=== PATIENT | female | born 1985 | race Caucasian/White ===

== ENCOUNTER → 2017-06-08 | Outpatient (CLI) | payer BC ==
[~2017-06-08] MED LIST: ACHD5005 PO; CLC500CT PO; DCS100C PO; IBP600T1 PO; PREN1TAB14 PO; RNT150T PO
--- NOTE | 2017-06-08 16:24 | Diagnostic Imaging Report ---
INDICATION: survey. TECHNIQUE: Multiple real-time grayscale images were obtained over the gravid uterus. COMPARISON: None FINDINGS: There is a single live fetus in a cephalic presentation. The placenta is anterior. The amniotic fluid volume is normal. heart rate was recorded at 143 beats per minute. survey demonstrates kidneys, bladder, and stomach to be unremarkable. Intracranial structures are unremarkable. There is a four-chamber heart. There is a three-vessel cord with normal cord insertion. The spine is grossly unremarkable. Biometrical measurements are as follows: Biparietal 4.9 cm, age 21 weeks 0 days. Head circumference 18.0 cm, age 20 weeks 4 days. Abdominal circumference 15.2 cm, age 20 weeks 4 days. Femur length 3.3 cm, age 20 weeks 2 days. Sonographic estimate age: 20 weeks 5 days. Sonographic estimated date of delivery: 10/21/17. Estimated Weight: 348 gm (+/- 51 gm). LMP percentile: 87%. heart rate: 143 beats per minute. number: 1 of 1. IMPRESSION: Single live IUP of approximately 20 weeks 5 days gestational age. The estimated date of confinement sonographically is 10/21/2017. Dictated by: Dictated on workstation # [id number]
== END ==
LOC: RAD 13:52
PROVIDERS: ATTEND Nurse Practitioner
DX: Z36.89 Encounter for other specified antenatal screening (principal); Z3A.20 20 weeks gestation of pregnancy
CPT/HCPCS: 76805

== ENCOUNTER 2018-12-02 10:34 | Outpatient (RCR) | payer BC ==
[~2018-12-02 10:34] MED LIST changes: +DOCU100C37 PO; +IBUP-844 PO; +PREN-8 PO
== END 2019-03-02 | disposition home or self-care (01) ==
LOC: CARD 10:34
PROVIDERS: ATTEND Nurse Practitioner Family
DX: R00.2 Palpitations (principal); R00.1 Bradycardia, unspecified
CPT/HCPCS: 93225; 93226

== ENCOUNTER → 2019-11-17 | Outpatient (CLI) | payer BC ==
--- NOTE | 2019-11-17 11:42 | Diagnostic Imaging Report ---
PROCEDURE: MRI lumbar spine. TECHNIQUE: Multiplanar, multisequence MRI of the lumbar spine was performed without contrast. INDICATION: Low back pain. COMPARISON: No prior studies are available for comparison. FINDINGS: There appears to be a transitional lumbosacral vertebral body. Please see images for appropriate spine labeling. Curvature and alignment of the lumbar spine is normal. Vertebral body heights are maintained. Marrow signal intensity is unremarkable. 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 There is some loss of height and signal intensity involving the L4-L5 disc, compatible with degenerative disc disease. Remaining lumbar discs show normal height and normal hydration. The conus is unremarkable at the T12 level. T12-L1: No central canal or neuroforaminal narrowing is identified. L1-L2: No central canal or neuroforaminal narrowing is identified. L2-L3: No central canal or neuroforaminal narrowing is identified. L3-L4: No central canal or neuroforaminal narrowing is detected. L4-L5: There is a large wide-based midline/left paramidline and posterolateral disc bulge indenting the ventral thecal sac. This does narrow the thecal sac to approximately 7 mm in AP diameter. There is significant narrowing of the left lateral recess with probable impingement on the exiting left L4 nerve root as well as the origin of the left L5 nerve root. There is some mild left neuroforaminal narrowing. Right neuroforamen is patent. L5-S1: No central canal or neuroforaminal narrowing is seen. IMPRESSION: 1. There is a transitional lumbosacral vertebral body. There is a large wide-based disc bulge at L4-L5 resulting in central canal, left lateral recess, and left neuroforaminal narrowing, as described. No other significant abnormality is detected. Dictated by: Dictated on workstation # [id number]
== END ==
LOC: RAD 09:45
PROVIDERS: ATTEND Physician Assistant
DX: M51.16 Intervertebral disc disorders with radiculopathy, lumbar region (principal); M48.061 Spinal stenosis, lumbar region without neurogenic claudication
CPT/HCPCS: 72148

== ENCOUNTER → 2020-06-26 | Outpatient (CLI) | payer BC ==
--- NOTE | 2020-06-26 13:49 | Diagnostic Imaging Report ---
INDICATION: survey. TECHNIQUE: Multiple real-time grayscale images were obtained over the gravid uterus. COMPARISON: None FINDINGS: There is a single live fetus in a transverse presentation with head to maternal right. heart rate was recorded at 140 bpm. Placenta is anterior. No previa is identified. Amniotic fluid volume is normal. kidneys, bladder and stomach are unremarkable. brain is unremarkable. There is a four-chamber heart. There is a three-vessel cord with normal insertion. spine is limited in evaluation due to position. Biometrical measurements are as follows: Biparietal 5.60 cm, age 23 weeks 1 days. Head circumference 20.09 cm, age 22 weeks 2 days. Abdominal circumference 17.70 cm, age 22 weeks 5 days. Femur length 3.69 cm, age 21 weeks 6 days. Sonographic estimate age: 22 weeks 4 days. Sonographic estimated date of delivery: 10/26/2020. Estimated Weight: 489 gm (+/- 71 gm). LMP percentile: 94%. heart rate: 140 beats per minute. number: 1 of 1. IMPRESSION: Single live IUP 22 weeks 4 days gestational age. Estimated date of confinement sonographically is 10/26/2020. Dictated by: Dictated on workstation # [id number]
== END ==
LOC: RAD 12:00
PROVIDERS: ATTEND Obstetrics & Gynecology
DX: Z36.89 Encounter for other specified antenatal screening (principal); Z3A.22 22 weeks gestation of pregnancy
CPT/HCPCS: 76805

== ENCOUNTER → 2020-08-14 | Outpatient (CLI) | payer BC ==
--- NOTE | 2020-08-14 17:32 | Diagnostic Imaging Report ---
INDICATION: Excessive growth. TECHNIQUE: Multiple real-time grayscale images were obtained over the gravid uterus. COMPARISON: 06/26/2020 FINDINGS: A single live intrauterine fetus is seen measuring 31 weeks 1 day in size, this is about 11 days larger than expected from original dates. Fetus is in transverse presentation. Amniotic fluid index is 18.6 cm. Placenta is anterior with no evidence of previa. heart rate is 139 bpm. Cervical length is 5.6 cm. On the previous study, spine was not well seen. On today's study, the spine is seen and appears unremarkable. Remaining structures were seen on the previous study. Biometrical measurements are as follows: Biparietal 7.68 cm, age 30 weeks 6 days. Head circumference 27.77 cm, age 30 weeks 3 days. Abdominal circumference 28.15 cm, age 32 weeks 2 days. Femur length 5.85 cm, age 30 weeks 4 days. Sonographic estimate age: 31 weeks 1 days. Sonographic estimated date of delivery: 10/15/2020. Estimated Weight: 1758 gm (+/- 257 gm). LMP percentile: 98%. heart rate: 139 beats per minute. number: 1 of 1. IMPRESSION: Single live intrauterine fetus measuring 31 weeks 1 day in size, this is about 11 days larger than expected from original dates. There is no detectable abnormality otherwise seen. Suggest continued follow-up as clinically warranted. Dictated by: Dictated on workstation # [id number]
== END ==
LOC: RAD 13:00
PROVIDERS: ATTEND Obstetrics & Gynecology
DX: O36.63X1 Maternal care for excessive fetal growth, third trimester, fetus 1 (principal); Z3A.31 31 weeks gestation of pregnancy
CPT/HCPCS: 76805

== ENCOUNTER 2020-10-24 06:05 | Outpatient (CLI) | payer BC ==
[~2020-10-24] VITALS: Ht 172.7 cm; Wt 113.6 kg
[2020-10-24] MEDS ORDERED: OMEP20TA7 PO (14:18)
--- NOTE | 2020-10-30 17:51 | History & Physical-OB ---
OB - Chief Complaint & HPI Date/Time Date of Admission: Date of Admission: 10/31/2020 Date seen by a Provider: Oct 31, 2020 Time Seen by a Provider: 07:30 Chief Complaint/History OB-Reason for Admission/Chief: Section Hx : 5 Hx Para: 4 Expected Date of Delivery: Nov 05, 2020 Gestational Age in Weeks: 39 Gestational Age in Days: 2 Indication for : desires repeat Other reason for admission: 35 year old advanced maternal age at 39 2/7 weeks with history of previous section x 3 presents on 10/31/2020 for repeat section has been uncomplicated Labs - O+/- Rub I VDRL NR HBsAg - HIV - Hep C - GBS - She had vaginal delivery with 4 the degree laceration. Then primary cs in 2011 due to arrest of dilation. She has had two repeat sections. Admission Nurse Assessment Rev: Yes Allergies and Home Medications Allergies Coded Allergies: No Known Drug Allergies (Unverified , 01/01/12) Home Medications Omeprazole 20 Mg Tablet.dr, 20 MG PO BID, (Reported) Last Action: New Order Vit W-Ca,Fe,FA(<1 mg) 1 Each Tablet, 1 EACH PO DAILY, (Reported) Last Action: Reviewed Patient Home Medication List Home Medication List Reviewed: Yes OB - History Hx of Present Care: Yes Ultrasounds: No ultrasounds Obstetrical Complications: None Medical Complications: None Information Induced Hypertension: No Maternal Gestational Diabetes: No Hemorrhage: No Obstetrical History Hx : 5 Hx Para: 4 Hx # Term Pregnancies: 4 Hx # Pregnancies: 0 Number of Living Children: 4 Hx Termination: No Hx Multiple Gestation: No Hx Stillbirth: No Hx Complication: No Hx Induced Hypertens: No Hx Maternal Gestational Diabet: No Delivery History Hx Dystocia: No Hx Forceps Assisted Delivery: No Hx Vacuum Extraction Assisted: No Hx Placenta Abnormality: No Hx Distress: No Hx Large For Gestational Age I: Yes Hx Small for Gestational Age I: No Hx Section: Yes Hx Vaginal Delivery Post C-Sec: No Hx Blood Disorders: No Adverse Rxn to Tranfusion: No Patient Past Medical History Nc Social History/Family History Alcohol Use: Denies Use Recreational Drug Use: No Smoking Cessation: Never smoker Immunizations Tetanus Booster (TDap): Less than 5yrs Date of Pneumonia Vaccine: Aug 02, 2020 Rubella: immune RPR/VDRL: Negative GBS Status: Negative HBsAG: Negative OB - Admission Exam Physical Exam HEENT: NCAT Heart: Rhythm Normal Lungs: Clear Abdomen: Gravid Extremities: Normal Heart Rate: 140's OB - Assessment/Plan/Diagnosis Assessment Assessment: section Admission Dx Previous Section Admission Status: Inpatient Order (span 2 midnights) Reason for Inpatient Admission: section Plan Plan: Section Other Plan Repeat section on 10/31/2020 Risks of surgery include bleeding, infection, injury to bowel, bladder and ureter. Appropriate consents have been signed Will use prophylactic antibiotics and SCDs. ELISEO ASHRAF DO Oct 30, 2020 17:51
[2020-10-31] MEDS ORDERED: ACET-93 PO (08:52)
[2020-10-31] MEDS ORDERED: OXC5T PO (08:52)
[2020-10-31] MEDS ORDERED: IBUP-844 PO (08:52)
[2020-10-31] MEDS ORDERED: FERR325T24 PO (08:52)
== END 2020-10-24 14:50 ==
LOC: PREOP 06:05
PROVIDERS: ATTEND Obstetrics & Gynecology
DX: Z01.818 Encounter for other preprocedural examination (principal)

== ENCOUNTER 2020-10-31 05:51 | Inpatient (IN) | payer BC ==
[~2020-10-31] VITALS: Ht 172.7 cm; Wt 118.7 kg
[2020-10-31] VITALS (9 sets, daily range): BP systolic 100–137; BP diastolic 73–98
[~2020-10-31 05:51] MED LIST changes: +OMEP20TA7 PO
[2020-10-31] MEDS ORDERED: FAMOTIDINE 20MG/2ML IV (PEPCID) IV ONE (06:15)
[2020-10-31] MEDS ORDERED: METOCLOPRAMIDE INJ 10 MG/2 ML (REGLAN) IV ONE (06:15)
[2020-10-31] MEDS ORDERED: CITRIC ACID/SOB CIT (BICITRA) 30 ML UDC PO ONE (06:15)
[2020-10-31] MEDS ORDERED: ceFAZolin 2 GM IV Premixed 50 ML IV ONE (06:15)
[2020-10-31] MEDS ORDERED: CATHETER FLUSH 10 ML SYR IV PRN (06:15)
[2020-10-31] MEDS ORDERED: LACTATED RINGERS 1,000 ML IV PRN ×2 (06:15)
[2020-10-31 06:51] LABS: BASOPHILS % (AUTO) 0 % (0-10); EOSINOPHILS # (AUTO) 0.1 10^3/uL (0.0-0.3); EOSINOPHILS % (AUTO) 1 % (0-10); HEMATOCRIT 31 % (35-52); HEMOGLOBIN 10.7 g/dL (11.5-16.0); LYMPHOCYTES # (AUTO) 1.8 10^3/uL (1.0-4.0); LYMPHOCYTES % (AUTO) 25 % (12-44); MEAN CORPUSCULAR HEMOGLOBIN 30 pg (25-34); MEAN CORPUSCULAR HGB CONC 34 g/dL (32-36); MEAN CORPUSCULAR VOLUME 88 fL (80-99); MEAN PLATELET VOLUME 10.7 fL (9.0-12.2); MONOCYTES # (AUTO) 0.6 10^3/uL (0.0-1.0); MONOCYTES % (AUTO) 9 % (0-12); NEUTROPHILS # (AUTO) 4.8 10^3/uL (1.8-7.8); NEUTROPHILS % (AUTO) 65 % (42-75); PLATELET COUNT 159 10^3/uL (130-400); WHITE BLOOD COUNT 7.3 10^3/uL (4.3-11.0)
[2020-10-31] MEDS ORDERED: OXYTOCIN PRE-MIX DRIP 1,000 ML IV ONE (07:19)
[2020-10-31] MEDS ORDERED: ONDANSETRON 4 MG/2 ML (SDV) Z0FRAN ONE (07:19)
[2020-10-31] MEDS ORDERED: fentaNYL INJ 100 MCG/2 ML AMP ONE (07:19)
[2020-10-31] MEDS ORDERED: KETOROLAC 30 MG/ML VIAL ONE (07:19)
--- NOTE | 2020-10-31 07:38 | Progress Note-Pre Operative ---
Pre-Operative Progress Note H&P Reviewed The H&P was reviewed, patient examined and no changes noted. Date Seen by Provider: Oct 31, 2020 Time Seen by Provider: 07:30 Date H&P Reviewed: Oct 31, 2020 Time H&P Reviewed: 07:30 Pre-Operative Diagnosis: previous section ELISEO ASHRAF DO Oct 31, 2020 07:38
[2020-10-31] MEDS ORDERED: OXYTOCIN PRE-MIX DRIP 500 ML IV SCH (08:00)
[2020-10-31] MEDS ORDERED: morphine INJ 4 MG/ML 1 ML (VIAL/SYRINGE) IV PRN (08:00)
[2020-10-31] MEDS ORDERED: MEASLES,MUMPS,RUBELLA 1 EA INJ SC SCH (08:00)
[2020-10-31] MEDS ORDERED: NALOXONE 0.4 MG/ML 1 ML (NARCAN) VIAL IV PRN (08:00)
[2020-10-31] MEDS ORDERED: TETANUS,DIPTH,PERTUSS P/F (BOOSTRIX) 0.5 ML VIAL IM SCH (08:00)
--- NOTE | 2020-10-31 08:51 | Cesarean Section Operative ---
Procedure Procedure Note Pre-operative Diagnosis: Kerry Epps is a 35 /Para 5 /4 ,Gestational Age 39 2/7 weeks with history of previous section x 3 Post-operative Diagnosis: same Procedure: Repeat low transverse section Physician: ELISEO ASHRAF Hand Cutter: Radhika Cobian Estimated blood loss: 750 mL Disposition: stable Findings: Viable male infant, Apgars 8/9, weight 10#12ounces, intact placenta, 3vc, normal appearing uterus, tubes, and ovaries. Indications:Kerry Epps is a 35 /Para 5 /4 ,Gestational Age 39 2/7 weeks with history of previous section x 3 Procedure Details: The patient was seen in pre-op and the procedure was discussed with the patient in full, including the risks, benefits, and alternatives. All questions were answered. The patient was taken to the operating room and a time out was performed, verifying patient and procedure. After spinal anesthesia was placed by our anesthesia colleagues, the patient was placed in the dorsal supine with leftward tilt for uterine displacement.~ Her abdomen was then prepped and draped in the typical sterile fashion. A Pfannenstiel skin incision was made using a scalpel through the previous incision and carried down through the underlying fascia. The fascia was incised in the midline and tented up using Antolin clamps. The fascia was densely scarred. On both the inferior and superior fascia side the rectus muscle was dissected off bluntly and sharply using Elise scissors. The peritoneum was i dentified and entered bluntly in the midline. This was then stretched laterally using manual strength. After entering the abdominal cavity and confirming lack of intraperitoneal adhesions, a large Nigel retractor was placed and the lower uterine segment was visualized. the bladder was advanced over the lower uterine segment. A bladder flap was created with the use of Metzenbaum scissors.~ A scalpel was utilized to make a low transverse uterine incision. Amniotomy was performed with an Allis clamp with return of clear fluid. The 's head was grasped and brought to the level of the incision. Fundal pressure was applied and infant was delivered without difficulty. Mouth and nares were suctioned with bulb suction. After the umbilical cord was clamped and cut, the infant was handed off to the pediatric staff. A sample of cord blood was then obtained. The placenta was delivered intact via uterine massage. The uterus was cleared of all clots and debris. The uterine incision was closed using 0 Vicryl in a runn ing locked fashion. A second imbricated layer was placed using 0 Vicryl in a running fashion as well. The bilateral tubes and ovaries appeared normal. The abdominal gutters were cleared of all clots and debris. A final check of the uterine incision showed it to be hemostatic. The peritoneum was closed using 3-0 Vicryl in a running fashion. The fascia was closed with 0 PDS in a running fashion. The subcutaneous space was hemostatic, and irrigated. The subcutaneous space was closed with 0 Plain in several single interrupted stitches. The skin was then closed using 4-0 Monocryl in a running subcuticular fashion. The skin edges were reapproximated together and were hemostatic. A pressure dressing was applied. All sponge, lap and needle counts were correct at the end of the procedure per nursing. Vitals - Labs Labs Laboratory Tests 10/31/20 06:30: White Blood Count 7.3, Red Blood Count 3.55L, Hemoglobin 10.7L, Hematocrit 31L, Mean Corpuscular Volume 88, Mean Corpuscular Hemoglobin 30, Mean Corpuscular Hemoglobin Concent 34, Red Cell Distribution Width 12.8, Platelet Count 159, Mean Platelet Volume 10.7, Immature Granulocyte % (Auto) 0, Neutrophils (%) (Auto) 65, Lymphocytes (%) (Auto) 25, Monocytes (%) (Auto) 9, Eosinophils (%) (Auto) 1, Basophils (%) (Auto) 0, Neutrophils # (Auto) 4.8, Lymphocytes # (Auto) 1.8, Monocytes # (Auto) 0.6, Eosinophils # (Auto) 0.1, Basophils # (Auto) 0.0, Immature Granulocyte # (Auto) 0.0 ELISEO ASHRAF DO Oct 31, 2020 08:51
[2020-10-31] MEDS ORDERED: FERR325T24 PO (08:52)
[2020-10-31] MEDS ORDERED: OXC5T PO (08:52)
[2020-10-31] MEDS ORDERED: IBUP-844 PO (08:52)
[2020-10-31] MEDS ORDERED: ACET-93 PO (08:52)
--- NOTE | 2020-10-31 08:53 | Short Stay Summary ---
Discharge Summary Hospital Course Final Diagnosis: Repeat section; acute blood loss anemia Hospital Course Date of Admission: Oct 31, 2020 at 05:51 Admission Diagnosis : Family Physician/Provider: JemmaLocal Physician Date of Discharge: 10/31/20 Discharge Diagnosis: [ ] Hospital Course: [ ] Labs and Pending Lab Test: Laboratory Tests 10/31/20 06:30: White Blood Count 7.3, Red Blood Count 3.55L, Hemoglobin 10.7L, Hematocrit 31L, Mean Corpuscular Volume 88, Mean Corpuscular Hemoglobin 30, Mean Corpuscular Hemoglobin Concent 34, Red Cell Distribution Width 12.8, Platelet Count 159, Mean Platelet Volume 10.7, Immature Granulocyte % (Auto) 0, Neutrophils (%) (Auto) 65, Lymphocytes (%) (Auto) 25, Monocytes (%) (Auto) 9, Eosinophils (%) (Auto) 1, Basophils (%) (Auto) 0, Neutrophils # (Auto) 4.8, Lymphocytes # (Auto) 1.8, Monocytes # (Auto) 0.6, Eosinophils # (Auto) 0.1, Basophils # (Auto) 0.0, Immature Granulocyte # (Auto) 0.0 Home Meds Active Acetaminophen 500 Mg Tablet 1,000 Mg PO Q6HR Ibu (Ibuprofen) 600 Mg Tablet 600 Mg PO Q6HR Ferosul (Ferrous Sulfate) 325 Mg Tablet 325 Mg PO DAILY@0700 Reported Omeprazole 20 Mg Tablet.dr 20 Mg PO BID Formula ( Vit W-Ca,Fe,FA(<1 mg)) 1 Each Tablet 1 Each PO DAILY Discharge Instructions Discharge Diet: No Restrictions Activity as Tolerated: Yes Discharge Physical Examination Allergies: Coded Allergies: No Known Drug Allergies (Unverified , 01/01/12) Discharge Summary Date of Admission Oct 31, 2020 at 05:51 Date of Discharge ELISEO ASHRAF DO Oct 31, 2020 08:53
[2020-10-31] MEDS: CATHETER FLUSH 10 ML SYR IV SCH ×2 (14:00→21:55)
[2020-10-31] MEDS: KETOROLAC 30 MG/ML VIAL IV SCH ×2 (15:55→21:55)
[2020-10-31] MEDS: ACETAMINOPHEN 500 MG TAB (TYLENOL) PO SCH ×2 (15:55→21:55)
[2020-10-31] MEDS: DOCUSATE SODIUM 100 MG (COLACE) CAP PO SCH ×2 (21:14→21:55)
[2020-11-01 00:29] VITALS: BP 124/76
[2020-11-01 04:30] VITALS: BP 134/83
[2020-11-01] MEDS: ACETAMINOPHEN 500 MG TAB (TYLENOL) PO SCH ×3 (05:50→21:31)
[2020-11-01] MEDS: KETOROLAC 30 MG/ML VIAL IV SCH (05:51)
[2020-11-01 06:19] LABS: BASOPHILS % (AUTO) 0 % (0-10); EOSINOPHILS # (AUTO) 0.1 10^3/uL (0.0-0.3); EOSINOPHILS % (AUTO) 1 % (0-10); HEMATOCRIT 29 % (35-52); HEMOGLOBIN 9.4 g/dL (11.5-16.0); LYMPHOCYTES # (AUTO) 2.4 10^3/uL (1.0-4.0); LYMPHOCYTES % (AUTO) 24 % (12-44); MEAN CORPUSCULAR HEMOGLOBIN 30 pg (25-34); MEAN CORPUSCULAR HGB CONC 33 g/dL (32-36); MEAN CORPUSCULAR VOLUME 91 fL (80-99); MEAN PLATELET VOLUME 10.9 fL (9.0-12.2); MONOCYTES # (AUTO) 0.7 10^3/uL (0.0-1.0); MONOCYTES % (AUTO) 8 % (0-12); NEUTROPHILS # (AUTO) 6.4 10^3/uL (1.8-7.8); NEUTROPHILS % (AUTO) 66 % (42-75); PLATELET COUNT 163 10^3/uL (130-400); WHITE BLOOD COUNT 9.7 10^3/uL (4.3-11.0)
[2020-11-01] MEDS: CATHETER FLUSH 10 ML SYR IV SCH (06:30)
[2020-11-01] MEDS ORDERED: FERROUS SULF 325 MG (IRON) TAB PO SCH (07:00)
--- NOTE | 2020-11-01 08:33 | Postpartum Progress Note ---
Post Op Post-operative Day #1 s/p RLTCS Subjective: Patient is without complaints. Ambulating, voiding after pink removed. Tolerating a regular diet without nausea or vomiting. Normal lochia. Pain is well controlled with oral pain medications. Passing flatus. breast feeding. Objective: 11/01/20 11/01/20 00:29 04:30 Temp 36.6 36.4 Pulse 73 71 Resp 16 16 B/P (MAP) 124/76 (92) 134/83 (100) Pulse Ox 97 97 O2 Delivery Room Air Room Air 10/31/20 23:59 Intake Total 950 ml Output Total 600 ml Balance 350 ml Laboratory Tests Test 11/01/20 05:25 Range/Units White Blood Count 9.7 4.3-11.0 10^3/uL Red Blood Count 3.17 L 3.80-5.11 10^6/uL Hemoglobin 9.4 L 11.5-16.0 g/dL Hematocrit 29 L 35-52 % Mean Corpuscular Volume 91 80-99 fL Mean Corpuscular Hemoglobin 30 25-34 pg Mean Corpuscular Hemoglobin Concent 33 32-36 g/dL Red Cell Distribution Width 13.0 10.0-14.5 % Platelet Count 163 130-400 10^3/uL Mean Platelet Volume 10.9 9.0-12.2 fL Immature Granulocyte % (Auto) 1 % Neutrophils (%) (Auto) 66 42-75 % Lymphocytes (%) (Auto) 24 12-44 % Monocytes (%) (Auto) 8 0-12 % Eosinophils (%) (Auto) 1 0-10 % Basophils (%) (Auto) 0 0-10 % Neutrophils # (Auto) 6.4 1.8-7.8 10^3/uL Lymphocytes # (Auto) 2.4 1.0-4.0 10^3/uL Monocytes # (Auto) 0.7 0.0-1.0 10^3/uL Eosinophils # (Auto) 0.1 0.0-0.3 10^3/uL Basophils # (Auto) 0.0 0.0-0.1 10^3/uL Immature Granulocyte # (Auto) 0.1 0.0-0.1 10^3/uL Physical Exam: General - Alert and oriented, no apparent distress Abdomen - Soft, appropriately tender to palpation, non-distended, fundus firm at umbilicus Incision - clean, dry and intact; no erythema or induration, no drainage Extremities - no edema, negative Justo's bilaterally Assessment: 1 post-operative day # 1, status post RLTCS. Recovering well, hemodynamically stable Acute blood loss anemia Plan: Routine post-operative care. Encourage breast feeding. Encourage ambulation. VTE prophylaxis: SCDs. Ferrous sulfate supplementation. Plan for discharge tomorrow Vitals - Labs Vital Signs - I&O Vital Signs Date Time Temp Pulse Resp B/P (MAP) Pulse Ox O2 Delivery O2 Flow Rate FiO2 11/01/20 04:30 36.4 71 16 134/83 (100) 97 Room Air 11/01/20 00:29 36.6 73 16 124/76 (92) 97 Room Air 10/31/20 20:00 36.2 78 18 137/85 (102) 95 Room Air 10/31/20 16:00 36.9 69 18 129/75 (93) 97 Room Air 10/31/20 11:00 36.1 74 18 119/74 (89) 98 Room Air 10/31/20 09:55 36.2 74 18 106/97 (100) 98 Room Air 10/31/20 09:55 36.2 18 106/97 (100) 98 Room Air 10/31/20 09:55 Room Air 10/31/20 09:45 36.1 18 119/77 (91) 98 Room Air 10/31/20 09:45 Room Air 10/31/20 09:45 36.1 67 18 119/77 (91) 98 Room Air 10/31/20 09:30 36.1 63 18 107/98 (101) 98 Room Air 10/31/20 09:30 36.1 18 107/98 (101) 98 Room Air 10/31/20 09:30 Room Air 10/31/20 09:18 35.9 76 18 100/88 (92) 97 Room Air 10/31/20 09:18 35.9 18 100/88 (92) 97 Room Air 10/31/20 09:13 Room Air 10/31/20 09:00 35.9 18 115/73 (87) 99 Room Air 10/31/20 09:00 35.9 63 18 115/73 (87) 99 Room Air 10/31/20 08:58 Room Air I & O 11/01/20 06:59 Intake Total 3300 ml Output Total 2375 ml Balance 925 ml Labs Laboratory Tests 11/01/20 05:25: White Blood Count 9.7, Red Blood Count 3.17L, Hemoglobin 9.4L, Hematocrit 29L, Mean Corpuscular Volume 91, Mean Corpuscular Hemoglobin 30, Mean Corpuscular Hemoglobin Concent 33, Red Cell Distribution Width 13.0, Platelet Count 163, Mean Platelet Volume 10.9, Immature Granulocyte % (Auto) 1, Neutrophils (%) (Auto) 66, Lymphocytes (%) (Auto) 24, Monocytes (%) (Auto) 8, Eosinophils (%) (Auto) 1, Basophils (%) (Auto) 0, Neutrophils # (Auto) 6.4, Lymphocytes # (Auto) 2.4, Monocytes # (Auto) 0.7, Eosinophils # (Auto) 0.1, Basophils # (Auto) 0.0, Immature Granulocyte # (Auto) 0.1 ELISEO ASHRAF DO Nov 01, 2020 08:33
--- NOTE | 2020-11-01 08:35 | Discharge Inst-Women's Service ---
Discharge Inst-Women's Serv Depart Medication/Instructions New, Converted or Re-Newed RX: Transmitted to Pharmacy Final Diagnosis 39 week gestation previous section antepartum and acute blood loss anemia Problems Reviewed?: Yes Consults/Follow Up Additional Follow Up: Yes (1-2 weeks for incision check; 6 week pp exam) Activity Activity: Activity as Tolerated Driving Instructions: No Driving for 1 Week NO SMOKING: NO SMOKING Nothing Inside Vagina: No Douching, No Benld, No Tampons Diet Discharge Diet: No Restrictions Symptoms to Report to : Swelling Increased, Bleeding Excessive, Pain Increased, Fever Over 101 Degrees F, Vaginal Bleeding Increase, Cramps in Feet or Legs, Vaginal Discharge Foul For Any Problems or Questions: Contact Your Physician Skin/Wound Care Infection Signs and Symptoms: Increased Redness, Foul Odor of Wound, Increased Drainage, Skin Itchy or Has a Rash, Increased Swelling, Temperature Above 101 F Operative Area Clean and Dry: Keep Incision Clean/Dry Stitches/Duran/Dermabond: Dermabond Bathing Instructions: ELISEO Olivier DO Nov 01, 2020 08:35
[2020-11-01 08:40] VITALS: BP 121/75
[2020-11-01] MEDS: DOCUSATE SODIUM 100 MG (COLACE) CAP PO SCH ×2 (08:43→21:31)
--- NOTE | 2020-11-01 11:06 | Anesthesia-Regional Post-Op ---
Regional Patient Condition Mental Status: Alert, Oriented x3 Circulation: Same as Pre-Op Headache: Absent Sensation: Full Recovery Motor Block: Absent Post Op Complications Complications None Follow Up Care/Instructions Patient Instructions None needed. Anesthesia/Patient Condition Patient is doing well, no complaints, stable vital signs, no apparent adverse anesthesia problems. AHMET MARIN DO Nov 01, 2020 11:06
[2020-11-01] MEDS ORDERED: OXC5T PO (11:19)
[2020-11-01 12:15] VITALS: BP 122/82
[2020-11-01] MEDS: IBUPROFEN 600 MG (MOTRIN) TAB PO SCH ×2 (12:16→17:34)
[2020-11-01 17:40] VITALS: BP 143/91
[2020-11-01 21:30] VITALS: BP 124/75
[2020-11-02] MEDS: IBUPROFEN 600 MG (MOTRIN) TAB PO SCH ×2 (02:16→08:02)
[2020-11-02 02:20] VITALS: BP 119/62
[2020-11-02] MEDS: DOCUSATE SODIUM 100 MG (COLACE) CAP PO SCH (07:59)
[2020-11-02 08:00] VITALS: BP 139/98
--- NOTE | 2020-11-02 08:57 | Postpartum Progress Note ---
Post Op Post-operative Day #2 Subjective: Patient is without complaints. Ambulating, voiding after pink removed. Tolerating a regular diet without nausea or vomiting. Normal lochia. Pain is well controlled with oral pain medications. Passing flatus. feeding. Objective: Vital Signs 11/02/20 11/02/20 08:00 08:01 Temp 36.6 Pulse 65 Resp 18 B/P (MAP) 139/98 (112) Pulse Ox 98 O2 Delivery Room Air Intake and Output 11/01/20 23:59 Intake Total 1300 ml Output Total 975 ml Balance 325 ml Intake Oral 1300 ml Output Urine Total 975 ml Physical Exam: General - Alert and oriented, no apparent distress Abdomen - Soft, appropriately tender to palpation, non-distended, fundus firm at umbilicus Incision - clean, dry and intact; no erythema or induration, no drainage Extremities - no edema, negative Justo's bilaterally Assessment: post-operative day # 2, status post . Recovering well, hemodynamically stable Acute blood loss anemia Plan: Routine post-operative care. Encourage breast feeding. Encourage ambulation. VTE prophylaxis: SCDs. Ferrous sulfate supplementation. Plan for discharge today Vitals - Labs Vital Signs - I&O Vital Signs Date Time Temp Pulse Resp B/P (MAP) Pulse Ox O2 Delivery O2 Flow Rate FiO2 11/02/20 08:01 36.6 11/02/20 02:20 36.6 70 18 119/62 (81) 99 Room Air 11/01/20 21:30 36.6 81 18 124/75 (91) 98 Room Air 11/01/20 17:40 36.3 76 18 143/91 (108) Room Air 11/01/20 12:15 72 18 122/82 (95) Room Air ARIANA BURRELL Nov 02, 2020 08:57
== END 2020-11-02 11:35 | disposition home or self-care (01) | DRG 787 ==
LOC: LDRP 05:51
PROVIDERS: ADMIT Obstetrics & Gynecology; ATTEND Obstetrics & Gynecology
PROC: 10D00Z1 Extraction of Products of Conception, Low, Open Approach (ICD-10-PCS; principal; 2020-10-31 07:47)
DX: O34.211 Maternal care for low transverse scar from previous cesarean delivery (principal); D62 Acute posthemorrhagic anemia; Z3A.39 39 weeks gestation of pregnancy; Z37.0 Single live birth; O90.81 Anemia of the puerperium; O99.62 Diseases of the digestive system complicating childbirth; K21.9 Gastro-esophageal reflux disease without esophagitis; Z91.018 Allergy to other foods
CPT/HCPCS: 36415; 85025; 86850; 86900; 86901